=== PATIENT | female | born 1990 | race Caucasian/White ===

== ENCOUNTER 2017-08-05 15:54 | Emergency (ER) | payer OTHER ==
[~2017-08-05] VITALS: Ht 157.5 cm; Wt 51.3 kg
[~2017-08-05 15:54] MED LIST: BENZTROPINE ME0.5 M1 PO; ESCITALOPRAM OXA5 MG PO; HAIR, SKIN & N1 EACH PO; INVEGA SUS156 MG/1 M AD; MELOXICAM7.5 M1 PO; NYSTATIN100000 UNI PO; PANTOPRAZOLE SO40 M1 PO; SERTRALINE HCL50 MG PO
[2017-08-05 16:25] LABS: ABSOLUTE BASOPHIL COUNT 0 /CUMM (0.0-0.2); ABSOLUTE EOSINOPHIL COUNT 0 /CUMM (0.0-0.7); ABSOLUTE LYMPH COUNT 1.6 /CUMM (1.2-3.4); ABSOLUTE MONOCYTE COUNT 0.3 /CUMM (0.10-0.60); BASOPHIL % 0.2 % (0.0-2.0); EOSINOPHIL % 0.1 % (0-5); GRANULOCYTE % 80.5 % (42.2-75.2); HEMATOCRIT 38.2 % (37-47); MEAN CORPUSCULAR HGB 30.8 PG (27.0-31.0); MEAN CORPUSCULAR HGB CONC 33.7 G/DL (33.0-37.0); MEAN CORPUSCULAR VOLUME 91.5 FL (81.0-99.0); MEAN PLATELET VOLUME 7.1 FL (7.4-10.4); PLATELET COUNT 349 /CUMM (130-400); RBC DISTRIBUTION WIDTH 13.2 % (11.5-14.5); RED BLOOD CELL CT 4.18 /CUMM (4.20-5.40); WHITE BLOOD CELL COUNT 9.9 /CUMM (4.8-10.8)
--- NOTE | 2017-08-05 17:01 | ED GENERAL ADULT ---
History of Present Illness General Chief Complaint: General Adult Stated Complaint: "I DON'T FEEL WELL" FEEL LIKE PASSING OUT Source: patient, family, old records Exam Limitations: no limitations Vital Signs & Intake/Output Vital Signs & Intake/Output Vital Signs Date Time Temp Pulse Resp B/P B/P Pulse O2 O2 Flow FiO2 Mean Ox Delivery Rate 08/05 1955 98.4 75 18 141/92 99 Room Air 08/05 1606 98.6 100 18 116/73 98 Room Air Allergies Coded Allergies: NO KNOWN ALLERGIES (12/01/12) Reconcile Medications Benztropine Mesylate (Unknown Strength) TABLET (Unknown Dose) PO AD UNKNOWN ( Reported) Escitalopram Oxalate (Unknown Strength) TABLET (Unknown Dose) PO DAILY MENTAL HEALTH (Reported) Meloxicam 7.5 MG TABLET 1 TAB PO DAILY PAIN (Reported) Multivitamin With Minerals (Hair, Skin & Nails) (Unknown Strength) TABLET ( Unknown Dose) PO DAILY SUPPLEMENT (Reported) Nystatin 100,000 UNIT/ML ORAL.SUSP 5 ML PO 4 TIMES/DAY thrush take for 7 days Paliperidone Palmitate (Invega Sustenna) 156 MG/ML SYRINGE 156 MG AD Q30D MENTAL HEALTH (Reported) Pantoprazole Sodium (Unknown Strength) TABLET.DR (Unknown Dose) PO AD UNKNOWN (Reported) Sertraline HCl 50 MG TABLET 1 TAB PO DAILY MENTAL HEALTH (Reported) Triage Note: 26 YO FEMALE TRIAGE C/O NOT FELING RIGHT ALL DAY. STATES SHE WALKED TO [employer] THIS AM [facility] WHEN SHE GOT THERE "EVERYONES VOICES WERE LOW" STATES WHEN SHE WENT TO USE HER CLARISSA ON HER PHONE TO PAY AND WASNT ABLE TO SEE THE SCREEN ON THE PHONE. STATES AFTER THAT SHE FELT IF SHE WAS GOING TO PASS OUT, STATES SHE WALKED BACK HOME [facility] WAITED AND CALLED HER MD WHO MADE THEN AN APPT FOR A COUPLE DAYS. STATES SHE WENT TO TAKE A SHOWER AND FELT LIKE SHE WASNT GETTING ENOUGH OXYGEN. RA SATS 99%, PT SPEAKING FULL, CLEAR SENTANCES. DENIES PAIN AT THIS TIME. Triage Nurses Notes Reviewed? yes Onset: Gradual Duration: hour(s): Timing: recent history Severity: moderate : No Patient currently breastfeeds: No HPI: 26yo female with history of psychosis, depression, anxiety presents emergency department complaining of headache, presyncope, visual disturbances, hearing abnormality beginning this morning. Patient states that she walked to [employer] and had abnormal sensation with her lower legs while she was walking. When patient arrived at the store she had difficulty hearing people as well as visual changes, she cannot see her phone. At that time she felt as though she was going to pass out. Patient walked home and had worsening headache. While she was in the shower she felt worsening presyncope and came to the emergency department. Patient also reports intermittent shortness of breath, feeling as though she is not getting oxygen to her lungs. She also admits to nausea. The patient denies chest pain, abdominal pain, vomiting, fevers, chills. Patient is on invega sustenna for her psychosis as a monthly injection. Last injection was about 1.5 months ago, patient is overdue for this medication, she does have an appointment scheduled with her psychiatrist for later this month. (Dorinda Ariza) Past History Travel History Traveled to [place] past 21 day No Medical History Any Pertinent Medical History? see below for history Neurological: NONE EENT: NONE Cardiovascular: NONE Respiratory: NONE Gastrointestinal: NONE Hepatic: NONE Renal: NONE Musculoskeletal: NONE Psychiatric: DEPRESSION, ANXIETY, psychosis Endocrine: NONE Surgical History Surgical History: non-contributory Psychosocial History What is your primary language [place] Tobacco Use: Current Daily Use Daily Tobacco Use Amount/Type: => 5 Cigarettes daily Family History Hx Contributory? No (Dorinda Ariza) Review of Systems Review of Systems Constitutional: Reports: no symptoms. EENTM: Reports: no symptoms. Respiratory: Reports: see HPI. Cardiovascular: Reports: no symptoms. GI: Reports: see HPI. Genitourinary: Reports: no symptoms. Musculoskeletal: Reports: no symptoms. Skin: Reports: no symptoms. Neurological/Psychological: Reports: see HPI. Hematologic/Endocrine: Reports: no symptoms. Immunologic/Allergic: Reports: no symptoms. All Other Systems: Reviewed and Negative (Dorinda Ariza) Physical Exam Physical Exam General Appearance: well developed/nourished, no apparent distress, alert, awake Head: atraumatic, normal appearance Eyes: Bilateral: normal appearance, PERRL, EOMI. Ears, Nose, Throat: normal pharynx, normal ENT inspection, hearing grossly normal Neck: normal inspection, supple, full range of motion Respiratory: normal breath sounds, no respiratory distress, lungs clear Cardiovascular: regular rate/rhythm Gastrointestinal: normal bowel sounds, soft, no organomegaly, MILD suprapubic tenderness, no rebound or gaurding Back: normal inspection, normal range of motion Extremities: normal inspection, normal range of motion Neurologic/Psych: awake, alert, oriented x 3 Skin: intact, normal color, warm/dry Core Measures ACS in differential dx? No CVA/TIA Diagnosis: No Sepsis Present: No Sepsis Focused Exam Completed? No (Rajani IBANEZ,Dorinda Lui) Progress Differential Diagnoses I considered the following diagnoses in my evaluation of the patient: [CVA/TIA, psychosis, dehydration, electrolyte abnormality, presyncope, ACS] Plan of Care: Orders Procedure Date/time Status Add-on Test (ER Only) 08/05 1724 Active EKG 08/05 1723 Active Add-on Test (ER Only) 08/05 1700 Active TROPONIN LEVEL 08/05 1610 Complete URINE DRUGS OF ABUSE 08/05 1609 Complete URINE 08/05 1600 Complete URINALYSIS 08/05 1600 Complete COMPREHENSIVE METABOLIC PANEL 08/05 1600 Complete CBC WITHOUT DIFFERENTIAL 08/05 1600 Complete Laboratory Tests 08/05/17 1610: Anion Gap 16, Estimated GFR > 60, BUN/Creatinine Ratio 13.3, Glucose 96, Calcium 10.0, Total Bilirubin 0.3, AST 17, ALT 25, Alkaline Phosphatase 70, Troponin I < 0.01, Total Protein 7.6, Albumin 4.8, Globulin 2.8, Albumin/Globulin Ratio 1.7, CBC w Diff NO MAN DIFF REQ, RBC 4.18 L, MCV 91.5, MCH 30.8, RDW 13.2, MPV 7.1 L, Gran % 80.5 H, Lymphocytes % 16.1 L, Monocytes % 3.1, Eosinophils % 0.1, Basophils % 0.2, Absolute Granulocytes 8.0 H, Absolute Lymphocytes 1.6, Absolute Monocytes 0.3, Absolute Eosinophils 0, Absolute Basophils 0, PUBS MCHC 33.7 08/05/17 1609: Urine Opiates Screen < 100.00, Methadone Screen < 40, Barbiturate Screen < 60, Ur Phencyclidine Scrn < 6.00, Amphetamines Screen 155, U Benzodiazepines Scrn < 85, Urine Cocaine Screen < 50, Urine Cannabis Screen < 5.00, Urine Color STRAW, Urine Clarity CLEAR, Urine pH 6.0, Ur Specific [place] 1.010, Urine Protein NEG, Urine Ketones NEG, Urine Nitrite NEG, Urine Bilirubin NEG, Urine Urobilinogen 0.2, Ur Leukocyte Esterase NEG, Ur Microscopic EXAM NOT REQUIRED, Urine Hemoglobin NEG, Urine Glucose NEG, Urine Test NEGATIVE Patient's EKG is within normal limits, troponin negative. Exam without focal neurologic deficit, cranial nerves are intact as tested. Patient's chest x-ray without acute abnormality. Oxygen saturation is within normal limits, the patient is not hypoxic. Patient informed of results of today's diagnostic imaging. As recommended that she follow up with her primary care physician and her psychiatrist. Patient in no acute distress, nontoxic appearing. The patient agrees with the plan of care. There is a low suspicion for cardiac pathology given negative troponin, normal EKG, no chest pain. Diagnostic Imaging: Viewed by Me: Radiology Read. Discussed w/RAD: Radiology Read. CXR Impression: PATIENT: BOBY ORTEGA PRESENT AGE: 26 PATIENT ACCOUNT NO: [id number] : 90 LOCATION: [facility] ORDERING PHYSICIAN: Dorinda IBANEZ SERVICE DATE: 08/05/17 EXAM TYPE: RAD - XRY-CHEST XRAY, TWO VIEWS EXAMINATION: CHEST 2 VIEWS CLINICAL INFORMATION: Dyspnea. COMPARISON: None. TECHNIQUE: PA and lateral views of the chest were obtained. FINDINGS: The cardiac silhouette is not enlarged. The mediastinal and hilar contours are unremarkable. There are neither pleural effusions nor pneumothoraces. There are no consolidations. The osseous structures are unremarkable. IMPRESSION: No evidence for acute disease. DICTATED BY: Connor Holland MD DATE/TIME DICTATED:08/05/171799 SIDE STAPLER:KENNA DATE/TIME TRANSCRIBED:08/05/171799 CONFIDENTIAL, DO NOT COPY WITHOUT APPROPRIATE AUTHORIZATION. <Electronically signed in Other Vendor System> SIGNED BY: Connor Holland MD 08/05/17 9408 Initial ED EKG: sinus rhythm @ 81bpm (Rajani IBANEZ,Dorinda Lui) Departure Departure Disposition: HOME OR SELF CARE Condition: Stable Clinical Impression Primary Impression: Pre-syncope Secondary Impressions: Visual changes Referrals: Unknown (PCP/Family) Additional Instructions: Follow-up with your primary care doctor. Also follow-up with your psychiatrist for your psychiatric medication. Return to the emergency Department with any worsening symptoms or other concerns. Please note that there might be incidental findings in your evaluation that are unrelated to the current emergency department visit. Please notify your primary care doctor about this emergency department visit in order to obtain and review all of the testing performed so that these incidental findings can be monitored as needed. If you had an x-ray performed, please understand that some fractures may not be seen on the initial set of x-rays. If your symptoms persist you might need a repeat set of x-rays to check for such a fracture. If you had a laceration evaluated, please understand that foreign bodies such as glass or wood may not be visible to the naked eye or on plain x-rays. If the wound becomes red, swollen, increasingly more painful or if there is any drainage from the wound, please have it reevaluated by a physician for the possibility of a retained foreign body. If you're unable to follow up as outlined in the discharge instructions please return to the emergency department. Thank you for choosing the [facility] Emergency Department for your care. It was a pleasure to serve you today. Departure Forms: Customer Survey General Discharge Information (Dorinda Ariza) PA/SWITCH TECHNICIAN Co-Sign Statement Statement: ED Attending supervision documentation- [] I saw and evaluated the patient. I have also reviewed all the pertinent lab results and diagnostic results. I agree with the findings and the plan of care as documented in the PA's/SWITCH TECHNICIAN's documentation. [X] I have reviewed the ED Record and agree with the PA's/SWITCH TECHNICIAN's documentation. [] Additions or exceptions (if any) to the PAs/SWITCH TECHNICIAN's note and plan are summarized below: [] (Buck Martinez DO) Critical Care Note Critical Care Note Critical Care Time: non-applicable (Dorinda Ariza)
--- NOTE | 2017-08-05 18:05 | RADIOLOGY REPORT ---
EXAMINATION: CHEST 2 VIEWS CLINICAL INFORMATION: Dyspnea. COMPARISON: None. TECHNIQUE: PA and lateral views of the chest were obtained. FINDINGS: The cardiac silhouette is not enlarged. The mediastinal and hilar contours are unremarkable. There are neither pleural effusions nor pneumothoraces. There are no consolidations. The osseous structures are unremarkable. IMPRESSION: No evidence for acute disease.
[2017-08-05 19:56] VITALS: BP 141/92
== END 2017-08-05 20:11 ==
LOC: ERH 15:54
PROVIDERS: Physician Assistant Medical
DX: R55 Syncope and collapse (principal); H53.9 Unspecified visual disturbance; R11.0 Nausea; R06.02 Shortness of breath
CPT/HCPCS: 71046; 80307; 81003; 81025; 93005; 93010

== ENCOUNTER 2017-12-31 07:55 | Emergency (ER) | payer OTHER ==
[~2017-12-31] VITALS: Ht 157.5 cm; Wt 48.6 kg
[~2017-12-31 07:55] MED LIST changes: +FLONASE ALLERG9.9 ML NASB; +IBUPROFEN800 M1 PO; +LIDOCAINE HCL V15 ML PO
--- NOTE | 2017-12-31 08:20 | ED GENERAL ADULT ---
History of Present Illness General Chief Complaint: General Adult Stated Complaint: MULTIPLE COMPLAINTS Source: patient Exam Limitations: no limitations Vital Signs & Intake/Output Vital Signs & Intake/Output Vital Signs Date Time Temp Pulse Resp B/P B/P Pulse O2 O2 Flow FiO2 Mean Ox Delivery Rate 12/31 0823 99 Room Air 12/31 0801 97.4 66 20 102/65 99 Room Air Allergies Coded Allergies: No Known Allergies (12/31/17) Reconcile Medications Benztropine Mesylate (Unknown Strength) TABLET (Unknown Dose) PO AD UNKNOWN ( Reported) Escitalopram Oxalate (Unknown Strength) TABLET (Unknown Dose) PO DAILY MENTAL HEALTH (Reported) Fluticasone Propionate (Flonase Allergy Relief) 50 MCG/ACTUATION SPRAY.SUSP 1 SPRAY NASB ONCE DAILY PRN congestion Ibuprofen 800 MG TABLET 1 TAB PO TID PRN pain/fever Lidocaine HCl (Lidocaine HCl Viscous) 2 % SOLUTION 15 ML PO 4 TIMES/DAY PRN THROAT PAIN Meloxicam 7.5 MG TABLET 1 TAB PO DAILY PAIN (Reported) Multivitamin With Minerals (Hair, Skin & Nails) (Unknown Strength) TABLET ( Unknown Dose) PO DAILY SUPPLEMENT (Reported) Nystatin 100,000 UNIT/ML ORAL.SUSP 5 ML PO 4 TIMES/DAY thrush take for 7 days Paliperidone Palmitate (Invega Sustenna) 156 MG/ML SYRINGE 156 MG AD Q30D MENTAL HEALTH (Reported) Pantoprazole Sodium (Unknown Strength) TABLET.DR (Unknown Dose) PO AD UNKNOWN (Reported) Sertraline HCl 50 MG TABLET 1 TAB PO DAILY MENTAL HEALTH (Reported) Triage Note: TRIAGE: PT TO ER C/C "I FEEL LIKE I HAVE CEMENT IN MY STOMACH. ESPECIALLY YESTERDAY. I WAS DRINKING MY TEA AND FELT LIKE I WAS DRINKING CEMENT. I WAS SMOKING A CIGARETTE AND FELT LIKE I WAS SMOKING CEMENT." REPORTS SYMPTOMS OF "GASPING FOR AIR" AFTER EATING A SALAD YESTERDAY. STATES "I THINK I MIGHT HAVE BEEN ALLERGIC TO SOMETHING IN THE SALAD." REPORTS BREATHING IS OK NOW. ALSO REPORTS PROBLEMS WITH CONSTIPATION, LBM ABOUT A WEEK AGO. "MY BOWEL MOVEMENTS HAVE BEEN DIFFERENT. WHEN I GO IT FEELS LIKE THERE IS SOMETHING INSIDE TIGHTENING UP AND CAUSING PAIN." C/O ABD PAIN JUST SINCE THIS MORNING BUT WHERE THE PAIN IS IN HER ABD MOVES. HAS APPT WITH GI DOCTOR THE END OF THIS MONTH. STATES "SINCE I'M HERE I HAVE PAIN IN MY BACK SHOULDER" AND POINTS TO R SHOULDER, INTERMITTENT X 4 DAYS, NO INJURY. WHEN ASKED ABOUT URINARY S/S STATES"WHEN I HAVE TO HOLD IT FOR A WHILE IT FEELS DIFFERENT, LIKE I HAVE THIS SACK OF PEE AND I'M GOING TO HAVE A WATERFALL". LMP APPROX 12/23/2017. Triage Nurses Notes Reviewed? yes : No Patient currently breastfeeds: No HPI: Patient presents for evaluation of abdominal discomfort. Patient states she spoke with her primary care physician's office yesterday due to feeling of "like eating cement" with when necessary take yesterday. Patient states that she was told by her primary care physician's office to go to the emergency department but she could not as she had to work overnight. She felt to be appropriate for an emergency department visit after work. She states she got the feeling of "cement" with eating foods and smoking cigarettes. She denies any associated fever, cold symptoms, vomiting, diarrhea, dysuria or rashes but states that she has felt nauseous intermittently. Past History Travel History Traveled to [place] past 21 day No Medical History Any Pertinent Medical History? see below for history Neurological: NONE EENT: NONE Cardiovascular: NONE Respiratory: NONE Gastrointestinal: NONE Hepatic: NONE Renal: NONE Musculoskeletal: NONE Psychiatric: DEPRESSION, ANXIETY psychosis Endocrine: NONE Blood Disorders: NONE Cancer(s): NONE LABOR CREW SUPERVISOR/Reproductive: NONE Surgical History Surgical History: non-contributory Psychosocial History What is your primary language Kyrgyz Tobacco Use: Current Daily Use Daily Tobacco Use Amount/Type: => 5 Cigarettes daily ETOH Use: occasional use Illicit Drug Use: denies illicit drug use Family History Hx Contributory? No Review of Systems Review of Systems Constitutional: Reports: no symptoms. EENTM: Reports: no symptoms. Respiratory: Reports: no symptoms. Cardiovascular: Reports: no symptoms. GI: Reports: see HPI. Genitourinary: Reports: no symptoms. Musculoskeletal: Reports: no symptoms. Skin: Reports: no symptoms. Neurological/Psychological: Reports: no symptoms. Hematologic/Endocrine: Reports: no symptoms. Immunologic/Allergic: Reports: no symptoms. All Other Systems: Reviewed and Negative Physical Exam Physical Exam General Appearance: SEE BELOW Comments: Gen.: Well-nourished, well-developed, no acute respiratory distress. Head: Normocephalic, atraumatic. Eyes: Normal inspection bilaterally Ears: Normal inspection bilaterally Nose: Normal inspection Throat/mouth : Moist mucosa Neck: Supple, full range of motion, no goiter Heart: Regular rate and rhythm, no murmurs rubs or gallops Lungs: Clear to auscultation bilaterally with normal air entry Chest: Nontender Back: Normal range of motion Abdomen: Soft, diffuse abdominal tenderness without rebound or guarding, nondistended, normal bowel sounds Extremities: Normal range of motion grossly, equal radial pulses, no cyanosis clubbing or edema Neurologic: Cranial nerves grossly intact, speech is clear Skin: warm and dry Psychiatric: Calm, cooperative, no apparent delusions or hallucinations Core Measures ACS in differential dx? No CVA/TIA Diagnosis: No Sepsis Present: No Sepsis Focused Exam Completed? No Progress Differential Diagnoses I considered the following diagnoses in my evaluation of the patient: Acid reflux, constipation, obstipation, bowel obstruction Plan of Care: Orders Procedure Date/time Status URINALYSIS 12/31 838 Complete LIPASE 12/31 838 Complete HUMAN BETA HCG SCREEN 12/31 838 Complete COMPREHENSIVE METABOLIC PANEL 12/31 838 Complete CBC WITHOUT DIFFERENTIAL 12/31 838 Complete Laboratory Tests 12/31/17 0930: Urinalysis LIGHT H, Urine Color YEL, Urine Clarity HAZY H, Urine pH 6.0, Ur Specific [place] 1.010, Urine Protein NEG, Urine Ketones NEG, Urine Nitrite NEG, Urine Bilirubin NEG, Urine Urobilinogen 0.2, Ur Leukocyte Esterase SMALL H, Ur Microscopic SEDIMENT EXAMINED, Urine RBC RARE, Urine WBC 3-5 H, Ur Epithelial Cells MOD H, Urine Bacteria FEW H, Urine Mucus FEW, Urine Hemoglobin NEG, Urine Glucose NEG 12/31/17 0853: Anion Gap 14, Estimated GFR > 60, BUN/Creatinine Ratio 12.9, Glucose 116 H, Calcium 10.0, Total Bilirubin 0.2, AST 16, ALT 19, Alkaline Phosphatase 76, Total Protein 7.0, Albumin 4.4, Globulin 2.6, Albumin/Globulin Ratio 1.7, Lipase 109, Total Beta HCG NEGATIVE, CBC w Diff NO MAN DIFF REQ, RBC 3.80 L, MCV 90.9, MCH 31.0, MCHC 34.1, RDW 13.5, MPV 7.3 L, Gran % 57.9, Lymphocytes % 33.3, Monocytes % 6.2, Eosinophils % 2.1, Basophils % 0.5, Absolute Granulocytes 3.7, Absolute Lymphocytes 2.1, Absolute Monocytes 0.4, Absolute Eosinophils 0.1, Absolute Basophils 0 Diagnostic Imaging: Discussed w/RAD: Radiology Read. CXR Impression: PATIENT: BOBY ORTEGA PRESENT AGE: 27 PATIENT ACCOUNT NO: [id number] : 90 LOCATION: [facility] ORDERING PHYSICIAN: Buck Rubio MD SERVICE DATE: 12/31/17 EXAM TYPE: RAD - XRY-ABDOMEN- MULTIPLE VIEWS EXAMINATION: XR ABDOMEN MULTIPLE VIEWS CLINICAL INDICATION: Diffuse abdominal tenderness; question constipation. COMPARISON: None TECHNIQUE: 2 supine and upright views of the abdomen. FINDINGS: There is diffuse stool distributed throughout the colon, with an appearance suggesting constipation. No obstruction or ileus is seen. There are no abnormal soft tissue calcification. The soft tissue planes are unremarkable. No free intraperitoneal air is seen. There is no foreign body. No acute osseous abnormality is seen. IMPRESSION: Findings are consistent with constipation, without daryl obstruction. No free intraperitoneal air is seen. DICTATED BY: Kris Solis MD DATE/TIME DICTATED:1042 CLASS 1 OWNER OPERATOR:KENNA DATE/TIME TRANSCRIBED:12/31/171042 CONFIDENTIAL, DO NOT COPY WITHOUT APPROPRIATE AUTHORIZATION. <Electronically signed in Other Vendor System> SIGNED BY: Kris Solis MD 12/31/171047 Initial ED EKG: none Departure Departure Disposition: HOME OR SELF CARE Condition: Stable Clinical Impression Primary Impression: Constipation Qualifiers: Constipation type: unspecified constipation type Qualified Code: K59.00 - Constipation, unspecified Referrals: Unknown (PCP/Family) Additional Instructions: MiraLAX [id number] as needed for constipation. Increase your fluid intake. Follow up with your primary care physician on Tuesday if not having regular bowel movements. Return if any concerns or sudden worsening. Departure Forms: Customer Survey General Discharge Information Prescriptions: Current Visit Scripts Polyethylene Glycol 3350 (Miralax) 17 GM PO DAILY #255 GM mix with water, juice, soda, coffee or tea Critical Care Note Critical Care Note Critical Care Time: non-applicable
[2017-12-31 09:06] LABS: ABSOLUTE BASOPHIL COUNT 0 /CUMM (0.0-0.2); ABSOLUTE EOSINOPHIL COUNT 0.1 /CUMM (0.0-0.7); ABSOLUTE GRANULOCYTE CT 3.7 /CUMM (1.4-6.5); ABSOLUTE LYMPH COUNT 2.1 /CUMM (1.2-3.4); ABSOLUTE MONOCYTE COUNT 0.4 /CUMM (0.10-0.60); BASOPHIL % 0.5 % (0.0-2.0); EOSINOPHIL % 2.1 % (0-5); GRANULOCYTE % 57.9 % (42.2-75.2); HEMATOCRIT 34.5 % (37-47); MEAN CORPUSCULAR HGB CONC 34.1 G/DL (33.0-37.0); MEAN CORPUSCULAR VOLUME 90.9 FL (81.0-99.0); MEAN PLATELET VOLUME 7.3 FL (7.4-10.4); PLATELET COUNT 276 /CUMM (130-400); RBC DISTRIBUTION WIDTH 13.5 % (11.5-14.5); WHITE BLOOD CELL COUNT 6.4 /CUMM (4.8-10.8)
--- NOTE | 2017-12-31 10:48 | RADIOLOGY REPORT ---
EXAMINATION: XR ABDOMEN MULTIPLE VIEWS CLINICAL INDICATION: Diffuse abdominal tenderness; question constipation. COMPARISON: None TECHNIQUE: 2 supine and upright views of the abdomen. FINDINGS: There is diffuse stool distributed throughout the colon, with an appearance suggesting constipation. No obstruction or ileus is seen. There are no abnormal soft tissue calcification. The soft tissue planes are unremarkable. No free intraperitoneal air is seen. There is no foreign body. No acute osseous abnormality is seen. IMPRESSION: Findings are consistent with constipation, without daryl obstruction. No free intraperitoneal air is seen.
[2017-12-31 11:17] VITALS: BP 104/74
[2017-12-31] MEDS ORDERED: MIRALAX119 GM PO (11:25)
== END 2017-12-31 11:54 ==
LOC: ERH 07:55
PROVIDERS: Emergency Medicine
DX: K59.00 Constipation, unspecified (principal)
CPT/HCPCS: 74021; 81001